=== PATIENT | female | born 1955 | race Caucasian/White ===

== ENCOUNTER → 2020-04-30 | Day surgery (SDC) | payer MEDICARE ==
[2020-04-26 11:03] LABS: BASOPHILS # (AUTO) 0.1 (0.0-0.1); BASOPHILS % 0.9 % (0.0-1.0); EOSINOPHILS # (AUTO) 0.2 (0.0-0.4); EOSINOPHILS % 2.3 % (0.0-6.0); HEMATOCRIT 43.1 % (34.2-44.1); HEMOGLOBIN 14.3 g/dL (12.0-16.0); LYMPHOCYTES # (AUTO) 2.6 (1.0-3.2); LYMPHOCYTES % 40.9 % (18.0-39.1); MEAN CORPUSCULAR HEMOGLOBIN 31.4 pg (28-32); MEAN CORPUSCULAR HGB CONC 33.2 g/dL (31-35); MEAN CORPUSCULAR VOLUME 94.7 fL (81-99); MONOCYTES # (AUTO) 0.4 (0.2-0.8); MONOCYTES % 6.4 % (4.4-11.3); NEUTROPHILS # (AUTO) 3.2 (2.1-6.9); NEUTROPHILS % 49.3 % (38.7-80.0); PLATELET COUNT 314 x10e3/uL (140-360); RED BLOOD COUNT 4.55 x10e6/uL (3.6-5.1); RED CELL DISTRIBUTION WIDTH 12.4 % (11.7-14.4)
[~2020-04-30] MED LIST: ANGELIQ 0.5 MG1 EACH PO; BYSTOLIC10 MG PO; BYSTOLIC5 MG PO; CALCIUM600 MG PO; FAMOTIDINE20 MG PO; FENTANYL CITRATE/PF 100MCG/2 ML INJ ONE; HYOSCYAMINE 0.125 MG TAB ONE; MIDAZOLAM HCL 2 MG/2 ML VIAL ONE; PATANASE PO; PRAVACHOL20 MG PO; PROPOFOL IV EMULSION 10 MG/ML 20 ML VIAL ONE; RANITIDINE HCL300 MG PO; VITAMIN C500 M1 PO; ZETIA10 MG PO; [UNRECOGNIZED DRUG - OTHER] PO
[2020-04-30 10:15] VITALS: BP 144/86
--- NOTE | 2020-04-30 10:49 | Operative Report ---
DATE OF PROCEDURE: 04/30/2020 SURGEON: Davin Corea MD PROCEDURE: EGD with polypectomy and biopsies and colonoscopy. INDICATIONS FOR EGD: Acid reflux, history of gastric polyps. INDICATIONS FOR COLONOSCOPY: Surveillance colonoscopy, personal history of colon polyps. MEDICATIONS: The patient was done under MAC, please see anesthesiologist's note. PROCEDURE IN DETAIL: With the patient in left lateral decubitus position, a flexible fiberoptic Olympus gastroscope was introduced into the esophagus under direct visualization without any difficulty. There was some patchy erythema noted in distal esophagus. The scope was then advanced with ease into the stomach traversing a small sliding hiatal hernia. Mucosa overlying the antrum and the body revealed some patchy erythema. Numerous gastric polyps were noted in the body of the stomach and approximately 15 were removed per hot snare polypectomy. The pylorus was of normal contour and shape was intubated with ease and the scope was advanced all the way to the second portion of the duodenum. The mucosa overlying the proximal second portion appeared to be within normal limits. The mucosa overlying the duodenal bulb was excessively nodular and biopsies were obtained. The scope was then withdrawn back into the stomach and retroflexed mucosa overlying the fundus and cardia appeared to be within normal limits. The scope was then straightened out, it was subsequently withdrawn, the patient tolerated procedure well. IMPRESSION: 1. Distal esophagitis, mild. 2. Small sliding hiatal hernia. 3. Gastritis, mild. 4. Gastric polyps, numerous, approximately 15 removed per hot snare polypectomy. 5. Excessively nodular duodenal bulb biopsied. PLAN: Follow up histology. Continue Protonix 40 mg one p.o. before meals b.i.d. The patient was then turned around after adequate lubrication of the anal canal, a flexible fiberoptic Olympus colonoscope was inserted into the rectum with ease and advanced all the way to the cecum. It was then withdrawn slowly. Mucosa overlying the cecum appeared to be within normal limits. Mucosa overlying the ascending and the transverse as well as the descending appeared to be within normal limits. Diverticular disease was noted to involve the distal descending and the sigmoid colon. The rectum appeared to be within normal limits. The scope was then retroflexed into the distal rectum. Small internal hemorrhoids were noted, none of which was actively bleeding. The scope was then straightened out, it was subsequently withdrawn, the patient tolerated procedure well. IMPRESSION: 1. Diverticulosis. 2. Internal hemorrhoids, none actively bleeding. PLAN: Initiate high-fiber low-fat diet. Initiate high-fiber supplement. The patient might benefit from a followup colonoscopy in 3 to 5 years. Davin Corea MD [facility] [place] /[id number] cc: Julio Mcfadden MD
== END | disposition home or self-care (01) ==
LOC: OR 07:01
PROVIDERS: ATTEND Internal Medicine Gastroenterology
DX: Z12.11 Encounter for screening for malignant neoplasm of colon (principal); I10 Essential (primary) hypertension; K20.90 Esophagitis, unspecified without bleeding; K29.70 Gastritis, unspecified, without bleeding; K44.9 Diaphragmatic hernia without obstruction or gangrene; K31.7 Polyp of stomach and duodenum; K57.30 Diverticulosis of large intestine without perforation or abscess without bleeding; K64.8 Other hemorrhoids; Z86.010 Personal history of colon polyps; Z01.810 Encounter for preprocedural cardiovascular examination; Z01.812 Encounter for preprocedural laboratory examination; Z20.828 Contact with and (suspected) exposure to other viral communicable diseases
CPT/HCPCS: 36415; 43239; 43250; 45378; 85025; 88305; 88312; 93005; J2250; J2704; J3010; U0002; 43251

== ENCOUNTER → 2024-12-23 | Day surgery (SDC) | payer MEDICARE ==
[2024-12-14 16:18] LABS: BASOPHILS % 0.9 % (0.0-1.0); EOSINOPHILS % 2.3 % (0.0-6.0); LYMPHOCYTES % 42.8 % (18.0-39.1); MONOCYTES % 8.4 % (4.4-11.3); NEUTROPHILS % 45.5 % (38.7-80.0); RED CELL DISTRIBUTION WIDTH 12.2 % (11.7-14.4)
[~2024-12-23] MED LIST changes: +FAMOTIDINE 20 MG/2 ML VIAL IV ONE; +GLUCAGON FOR INJ 1 MG VIAL ONE; -HYOSCYAMINE 0.125 MG TAB ONE; +HYOSCYAMINE SULFATE 0.5 MG/ML INJ ONE; -MIDAZOLAM HCL 2 MG/2 ML VIAL ONE; +PROPOFOL IV EMULSION 50 ML IV ONE; +VITAMIN B121000 MCG PO
[2024-12-23] MEDS: LACTATED RINGER'S 1,000 ML ONE (08:41)
[2024-12-23 10:29] VITALS: TEMP 97.4
[2024-12-23 11:00] VITALS: BP 141/89; PULSE 93; RESP 16; O2SAT 97
== END | disposition home or self-care (01) ==
LOC: OR 07:19
PROVIDERS: ATTEND Internal Medicine Gastroenterology
DX: K31.7 Polyp of stomach and duodenum (principal); D12.3 Benign neoplasm of transverse colon; K29.50 Unspecified chronic gastritis without bleeding; K20.90 Esophagitis, unspecified without bleeding; K44.9 Diaphragmatic hernia without obstruction or gangrene; K31.89 Other diseases of stomach and duodenum; K26.9 Duodenal ulcer, unspecified as acute or chronic, without hemorrhage or perforation; K21.9 Gastro-esophageal reflux disease without esophagitis; K57.30 Diverticulosis of large intestine without perforation or abscess without bleeding; K64.8 Other hemorrhoids; I10 Essential (primary) hypertension; J45.909 Unspecified asthma, uncomplicated; M26.609 Unspecified temporomandibular joint disorder, unspecified side; M54.2 Cervicalgia; M54.9 Dorsalgia, unspecified; Z01.812 Encounter for preprocedural laboratory examination; Z79.899 Other long term (current) drug therapy; Z85.828 Personal history of other malignant neoplasm of skin
CPT/HCPCS: 36415; 43239; 43251; 45385; 85025; 88305; 88342; J1308; J1610; J1980; J2470; J2704 ×2; J3010; J7121; 45378